=== PATIENT | male | born 1970 | race Caucasian/White ===

== ENCOUNTER 2018-12-30 14:01 | Emergency (ER) | payer MEDICAID ==
[~2018-12-30] VITALS: Wt 87.8 kg
[~2018-12-30 14:01] MED LIST: MECL12.574 PO
[2018-12-30] MEDS ORDERED: LACTATED RINGER'S 1,000 ML IV ONE (17:30)
[2018-12-30] MEDS ORDERED: MECLIZINE 12.5 MG TAB PO ONE (17:30)
[2018-12-30 19:33] VITALS: BP 132/81; PULSE 64; RESP 18
== END 2018-12-30 19:34 | disposition home or self-care (01) ==
LOC: FTE 14:01
DX: R42 Dizziness and giddiness (principal); J45.909 Unspecified asthma, uncomplicated
CPT/HCPCS: 36415; 71045; 80053; 85025; 93005; 96360; J7120; Z7502; Z7610